=== PATIENT | male | born 1980 | race Caucasian/White ===

== ENCOUNTER 2023-03-05 09:59 | Emergency (ER) | payer OTHER, SELFPAY ==
--- NOTE | ~2023-03-05 | XR_ITS ---
EXAMINATION: XR abdomen obstructive series DATE: 03/05/2023 10:46 INDICATION: Left lower quadrant pain TECHNIQUE: Upright and supine views of the abdomen were obtained. COMPARISON: None. FINDINGS: No free intraperitoneal gas or evidence of bowel obstruction. There is a moderate volume of colonic stool. The visualized lung bases are clear. IMPRESSION: 1. Nonobstructive bowel gas pattern. Reviewed, dictated and finalized at location B. [facility] [employer]
[2023-03-05 10:09] VITALS: BP 132/92; PULSE 94; RESP 16; TEMP 37.9; O2SAT 100
--- NOTE | 2023-03-05 10:15 | ED.MALEGU ---
HPI - Male Genitourinary General Chief complaint: Urogenital-Male Stated complaint: LOW ABD PAIN/CLOUDY URINE Time Seen by Provider: 03/05/23 10:15 Source: patient Mode of arrival: ambulatory Limitations: no limitations History of Present Illness HPI Narrative: [age] year male presents complaint left-sided lower abdominal pain since yesterday. Reports dysuria, aching feeling in testicles, decreased output. Afebrile. Patient reports viral URI approximately a week ago. Was taking NyQuil for to treat symptoms. Reports over the last 4 days has had decreased appetite, only 1 bowel movement. States normally has a bowel movement every day. All systems reviewed and negative except as noted above. Related Data Home Medications Medication Instructions Recorded Confirmed magnesium oxide 400 mg (241.3 mg 400 mg PO DAILY 03/05/23 03/05/23 magnesium) tablet zolmitriptan 5 mg disintegrating 5 mg PO DAILY 03/05/23 03/05/23 tablet Allergies Allergy/AdvReac Type Severity Reaction Status Date / Time No Known Allergies Allergy Verified 03/05/23 10:44 Review of Systems Review of Systems: CONSTITUTIONAL: Denies fever, chills, or sweats. EYES: Denies visual changes, redness, or discharge. ENT: Denies rhinorrhea, congestion, sore throat, or otalgia. CARDIOVASCULAR: Denies chest pain, palpitations, or edema. RESPIRATORY: Denies cough or dyspnea. GASTROINTESTINAL: Reports left lower abdominal pain, decreased appetite, constipation. Denies nausea, vomiting, or diarrhea. GENITOURINARY: Reports dysuria, decreased output. Denies hematuria. SKIN: Denies rash or itching. MUSCULOSKELETAL: Denies back pain, joint pain, or myalgia. NEUROLOGIC: Denies headache, numbness, or weakness. PSYCHIATRIC: Denies anxiety or depression. All other systems reviewed are negative, except as documented in HPI. PMFSH Comments At time of signature, agree with nursing past medical, surgical, social and family history. There is no relevant family history pertinent to the presenting complaint. Exam Narrative: GENERAL: This is a well-nourished, well-developed patient, in no apparent distress. HEAD: normocephalic, atraumatic. EYES: PERRL. Sclera clear/white. Vision is grossly intact. EARS: External ears normal NOSE: External nose normal NECK: Neck supple, non-tender without lymphadenopathy, masses or thyromegaly. CARDIOVASCULAR: Regular rate and rhythm without murmurs, gallops, or rubs. RESPIRATORY: Clear to auscultation. Breath sounds equal bilaterally. No wheezes, rales, or rhonchi. GASTROINTESTINAL: Abdomen soft, non-tender, nondistended. Bowel sounds are hypo active. No hepato-splenomegaly, or palpable masses. No guarding. SKIN: warm, Dry, intact with no suspicious lesions or rash, good texture and turgor. NEURO: awake, alert, and oriented to person, place and time. There were no obvious focal neurologic abnormalities. EXTREMITIES: No joint tenderness, effusion, or edema noted. Course Course Level of Care: Express Care Visit Vital Signs Vital signs: Vital Signs Temperature 37.9 C H 03/05/23 10:09 Pulse Rate 94 03/05/23 10:09 Respiratory Rate 16 03/05/23 10:09 Blood Pressure 132/92 H 03/05/23 10:09 Pulse Oximetry 100 03/05/23 10:09 Temperature 37.9 C H 03/05/23 10:09 Pulse Rate 94 03/05/23 10:09 Respiratory Rate 16 03/05/23 10:09 Blood Pressure 132/92 H 03/05/23 10:09 Pulse Oximetry 100 03/05/23 10:09 Reviewed MDM - Male Genitourinary MDM Narrative Medical decision making narrative: Discussed x-ray results with patient. Recommend [id number] MiraLax and Gas-X to treat symptoms. Recommend 64 oz of water a day. Urinalysis not concerning for urinary tract infection will treat with antibiotic due to symptoms. Recommend follow-up primary care physician if not improving. Patient is aware of diagnosis, understands and agrees to treatment plan. Anticipatory guidance given. Patient ag
== END 2023-03-05 11:23 | disposition home or self-care (01) ==
PROVIDERS: Emergency Provider Nurse Practitioner Family
DX: N39.0 Urinary tract infection, site not specified (principal); B96.20 Unspecified Escherichia coli [E. coli] as the cause of diseases classified elsewhere; K59.00 Constipation, unspecified; R14.1 Gas pain
CPT/HCPCS: 74019; 81003; 87077; 87086; 87186; 99213; G0463